=== PATIENT | female | born 1990 | race Caucasian/White ===

== ENCOUNTER → 2019-02-25 | Outpatient (CLI) | payer OTHER ==
[~2019-02-25] MED LIST: ACET-683 PO; IBUP80TA PO; PRENTAB9 PO; TUMS500C PO
[2019-02-25 14:11] LABS: HEMATOCRIT 36.3 % (36.0-47.0); HEMOGLOBIN 11.9 g/dl (12.0-15.5); MEAN CORPUSCULAR HEMOGLOBIN 31.6 pg (27.0-33.0); MEAN CORPUSCULAR HGB CONC 32.8 g/dl (32.0-36.5); MEAN CORPUSCULAR VOLUME 96.5 fl (80.0-96.0); PLATELET COUNT, AUTOMATED 293 10^3/uL (150-450); RED BLOOD COUNT 3.76 10^6/uL (4.00-5.40); WHITE BLOOD COUNT 11.2 10^3/uL (4.0-10.0)
== END ==
LOC: M SMT 09:20 → MERGE 09:20
PROVIDERS: ATTEND Advanced Practice Midwife
DX: O34.219 Maternal care for unspecified type scar from previous cesarean delivery (principal)

== ENCOUNTER → 2019-03-04 | Outpatient (CLI) | payer OTHER ==
--- NOTE | 2019-03-04 17:57 | REP ---
Obstetric sonography: History: Supervision of , followup anatomy. Findings: Scanning through the gravid uterus demonstrates a viable single intrauterine gestation in a cephalic lie. motion is observed and heart rate is recorded at 144 beats per minute. An anterior grade 1 placenta is seen without evidence of previa or abruption. Amniotic fluid is subjectively normal. Closed cervical length is 3.9 cm. No extrauterine abnormalities observed. There has been appropriate interval growth. The umbilical cord is seen draping over the neck. No anomaly is seen. The following anatomic structures are again identified and felt to be sonographically unremarkable: cranium, cavum, face and profile, lungs, four-chamber heart with left and right ventricular outflow tract views, diaphragm, left-sided stomach, abdominal wall cord insertion, three-vessel cord, kidneys and bladder. Biometry chart: BPD 7.4 cm = 29 weeks 6 days HC 27.9 cm = 30 weeks 4 days AC 25.5 cm = 29 weeks 5 days FL 5.6 cm = 29 weeks 3 days HL 5.0 cm = 29 weeks 0 days HC/AC ratio normal 1.09. Cephalic index normal 0.73. Estimated weight 1439 grams, 3 pounds 2 ounces, 42nd percentile for 29 weeks 5 days. SEKOU normal 10.1 cm. S/D ratio in the umbilical cord artery by Doppler normal 2.60. Impression: Viable single intrauterine gestation at 29 weeks 5 days. [place] by today's sonography May 15, 2019. Electronically Signed by Arnulfo Rodriguez MD 03/07/2019 08:22 A
== END ==
LOC: M RAD 15:41 → MERGE 16:00
PROVIDERS: ATTEND Obstetrics & Gynecology
DX: O26.843 Uterine size-date discrepancy, third trimester (principal); Z3A.29 29 weeks gestation of pregnancy

== ENCOUNTER → 2019-04-25 | Outpatient (REF) | payer OTHER, MEDICAID | LOC: M LAB REF 17:22 | PROVIDERS: ATTEND Obstetrics & Gynecology | DX: Z36.85 Encounter for antenatal screening for Streptococcus B (principal) ==

== ENCOUNTER 2019-05-06 12:30 | Inpatient (IN) | payer MEDICAID, OTHER ==
[2019-05-06] VITALS (30 sets, daily range): BP systolic 106–139; BP diastolic 55–88
[~2019-05-06] VITALS: Ht 160 cm; Wt 80.0 kg
[2019-05-06] MEDS ORDERED: LACTATED RINGER'S 1000 ML IV STA (12:39)
[2019-05-06] MEDS ORDERED: PRENTAB9 PO (13:42)
[2019-05-06] MEDS ORDERED: TUMS500C PO (13:42)
--- NOTE | 2019-05-06 13:58 | HPEPDOC ---
Obstetrical History & Physical General Date of Admission May 06, 2019 at 12:30 History of Present Illness Chief Complaint: Gestational Hypertension, Induction of labor Information Provided By: Patient Age: 29 : 3 Term: 1 Pre-term: 0 Abortions: 1 Livin Care Care: Good Care Dating Final EDC: May 15, 2019 Final EDC by: 1st trimester (US) EGA at Admission: 38 (+5) Antepartum Course Height (inches): 63 Pre- weight (lbs.): 150 Admission Weight (lbs.): 177 Past Medical History Past Obstetrical History : Past Obstetrical History: Primgravida (2015) Type of Delivery: Ceserean section (PROM at 41 weeks, arrest of dilation) Sex of : Male (8 lbs. 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) Past Medical History Medical History Noncontributory Surgical History: Other (dental) Family History Significant Family History: Diabetes Social History Marital Status: Family situation: Spouse/partner home Psychosocial History: No pertinent psych hx * Smoker: non-smoker Alcohol: Denies Drugs: denies Abuse Violence Screening Have you been hit/kicked/slapp: No Have you been sexually assault: No Imunizations Tdap status: declined Allergies Coded Allergies: No Known Allergies (Unverified , 05/06/19) Medications Scheduled Calcium Carbonate (Tums) 200 Mg Tab.chew, 2 TAB PO QID for cough and congestion No.137/Iron/Folic Acd ( Vitamin Tablet) 1 Each Tablet, 1 TAB PO DAILY Physical Examination Physical Examination GENERAL: Alert and oriented times three. BREAST: . ABDOMEN: Gravid and non-tender to touch. FETUS: Is vertex (VTX) by sterile vaginal examination (SVE), fetus is vertex (VTX) by Rex. HEART RATE: Regular rate and rhythm. LUNGS: Clear to auscultation (CTA). EXTREMITIES: No edema. No clonus. Deep tendon reflexes (DTRs) + 2. Laboratory Data 24H [facility] Laboratory Tests 2 05/06/19 12:37: Serology Scanned Report Hepatitis B Testing Pertinent Laboratoy Data Blood Type: O- RBC Antibody Screen: Negative HIV: Negative Hepatitis B: Negative Hepatitis C: Negative Rapid Plasma Reagin: Nonreactive Rubella: Immune Chlamydia/Gonorrhea: Negative Group B Streptococcus: Negative Quad Screen Test: Declined Glucose Tolerance Test: 97 Anatomy Ultrasound Ultrasound Date: Dec 24, 2018 Placenta Location: Anterior Normal Anatomy: Yes Placenta Previa: No Estimated Weight (grams): 295 Other Ultrasounds 10/25/2018, dating 11 weeks 1 day. 03/04/2019. Growth, 42nd percentile Vaginal Examination Dilation: None Effacement: 50% Station: -2 Cervical Consistency: Soft (exam by Jon Rondon CNM) Cervical Position: Middle Presentation: Cephalic presentation Assessment Heart Rate (FHR): 135 Variability: Moderate Accelerations: Positive Decelerations: None Tocometer Frequency: irregular Strength: palpated as mild Assessment/Plan Assessment Analilia is a 29-year-old (G) 3 para (P), 1 -, 0 -, 1-1 at 38 + 5 weeks by 11-week ultrasound. Presents to Labor and Delivery (L&D) after office visit wh ere it was determined that she had 2 elevated blood pressures. Initially 150/90 with a repeat of 142/108. Patient is being admitted for induction of labor due to gestational hypertension per consultation with Dr. Ernst. History is significant for a previous section and patient desires a trial of labor after . She has been thoroughly counseled and consents.. Plan Admit and orient. 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 Per consult. Dr. Ernst Diet: Clear liquids. Group B Streptococcus (GBS), negative. Labs and intravenous (IV) per unit protocol. Counseled on Pitocin, Cook's catheter and induction of labor (IOL). Lactated Ringers (LR): Bolus 500 mL, then at one 25 mL/hr. Patient desires epidural for coping Anticipate successful vaginal delivery after . C-S as appropriate. Vy Garcia CNM May 06, 2019 13:58
[2019-05-06 14:05] LABS: HEMATOCRIT 33.9 % (36.0-47.0); HEMOGLOBIN 11.5 g/dl (12.0-15.5); MEAN CORPUSCULAR HEMOGLOBIN 31.4 pg (27.0-33.0); MEAN CORPUSCULAR HGB CONC 33.9 g/dl (32.0-36.5); MEAN CORPUSCULAR VOLUME 92.6 fl (80.0-96.0); PLATELET COUNT, AUTOMATED 265 10^3/uL (150-450); RED BLOOD COUNT 3.66 10^6/uL (4.00-5.40); WHITE BLOOD COUNT 12.6 10^3/uL (4.0-10.0)
[2019-05-06 14:33] LABS: ALT/SGPT 24 U/L (12-78); BILIRUBIN,TOTAL 0.5 MG/DL (0.2-1.0); CREATININE FOR GFR 0.52 MG/DL (0.55-1.30); GLOMERULAR FILTRATION RATE > 60.0 (>60); LDH LACTATE DEHYDROGENASE 162 U/L (84-246); URIC ACID 3.2 MG/DL (2.6-6.0)
[2019-05-06 14:37] LABS: CREATININE,RANDOM URINE 82.5 MG/DL; TOTAL PROTEIN,RANDOM URINE 16.6 MG/DL (0.0-12.0)
[2019-05-06] MEDS ORDERED: OXYTOCIN DRIP 30 UNITS in IV 1 EA IV SCH (15:00)
[2019-05-06] MEDS: LR 1,000 ML IV SCH ×2 (15:11→19:26)
--- NOTE | 2019-05-06 17:44 | IPNPDOC ---
Text Note Date of Service The patient was seen on 05/06/19. NOTE Reports feeling mild cramping FH 145, Cat I Irregular UC SVE /-2 Cooks catheter placed, 60/40 placed Light bloody show noted VS,Fishbone, I+O VS, Fishbone, I+O Laboratory Tests 05/06/19 13:56 Vital Signs Date Time Temp Pulse Resp B/P (MAP) Pulse Ox O2 Delivery O2 Flow Rate FiO2 05/06/19 15:40 93 128/83 (98) 05/06/19 12:52 96.9 18 Vy Garcia CNM May 06, 2019 17:44
[2019-05-06] MEDS ORDERED: BUTORPHANOL 2 MG/ML INJ (J0595) IV ONE (20:00)
[2019-05-06] MEDS ORDERED: PROMETHAZINE INJ 25 MG/ML VIAL (J2550) IV ONE (20:00)
[2019-05-06] MEDS ORDERED: FENTANYL 2MCG/ML ROPIVACAINE 0.2% IN 0.9% NACL 100ML IVBAG As Ordered ONE (21:24)
[2019-05-06] MEDS: FENTANYL/ROPIVACAINE/NACL BAG 100 ML EPIDURAL SCH (21:30)
[2019-05-06] MEDS ORDERED: ONDANSETRON 4MG/2ML VIAL (J2405) IV PRN (21:30)
[2019-05-06] MEDS ORDERED: REFRIGERATOR IV KEYS XX PRN (21:30)
[2019-05-06] MEDS ORDERED: diphenhydrAMINE INJ 50MG/ML VIAL (J1200) IV PRN (21:30)
[2019-05-06] MEDS ORDERED: EPIDURAL/PCA KEYS XX PRN (21:30)
[2019-05-06] MEDS ORDERED: LACTATED RINGER'S 1000 ML IV PRN (21:30)
[2019-05-06] MEDS ORDERED: ePHEDrine SULFATE 25 MG/5 ML(5MG/ML) SYRINGE IV PRN (21:30)
[2019-05-06] MEDS ORDERED: NALOXONE INJ 0.4 MG/1 ML VIAL (J2310) IV PRN (21:30)
[2019-05-06] MEDS ORDERED: EPIDURAL COMMENT XX SCH (21:30)
[2019-05-07] VITALS (27 sets, daily range): BP systolic 99–139; BP diastolic 54–79
--- NOTE | 2019-05-07 03:14 | IPNPDOC ---
Text Note Date of Service The patient was seen on 05/07/19. NOTE SROM 0150 clear fluid UC 2-3 minutes apart x 60 seconds Pitocin @ 4mu FH 160, accels to 170's, moderate variability SVE 3-4/80/-1, tight edge persists Observe. Dr Franco aware of pt status and in house. VS,Fishbone, I+O VS, Fishbone, I+O Laboratory Tests 05/06/19 13:56 Vital Signs Date Time Temp Pulse Resp B/P (MAP) Pulse Ox O2 Delivery O2 Flow Rate FiO2 05/07/19 01:47 83 109/66 (80) 05/06/19 23:47 97.7 16 05/06/19 19:37 Room Air I&O- Last 24 Hours up to 6 AM 05/07/19 06:00 Intake Total 2590 ml Output Total 1125 ml Balance 1465 ml Vy Garcia CNM May 07, 2019 03:14
[2019-05-07] MEDS: FENTANYL/ROPIVACAINE/NACL BAG 100 ML EPIDURAL SCH (05:13)
[2019-05-07] MEDS: LR 1,000 ML IV SCH (07:12)
[2019-05-07] MEDS ORDERED: ACETAMINOPHEN 500 MG TAB PO PRN (10:00)
[2019-05-07] MEDS ORDERED: METHYLERGONOVINE MALEATE 0.2 MG TAB PO PRN (10:00)
[2019-05-07] MEDS ORDERED: ACETAMINOPHEN TAB 650MG DOSE (2X325MG) PO PRN (10:00)
[2019-05-07] MEDS ORDERED: ONDANSETRON 4MG/2ML VIAL (J2405) IV PRN (10:00)
[2019-05-07] MEDS ORDERED: DOCUSATE SODIUM 100 MG CAP PO PRN (10:00)
[2019-05-07] MEDS ORDERED: RHOGAM 300 MCG (1500 IU) INJ (J2790) IM SCH (10:00)
[2019-05-07] MEDS ORDERED: DIBUCAINE 1% OINTMENT 30GM TOP PRN (10:00)
[2019-05-07] MEDS ORDERED: OXYTOCIN DRIP 30 UNITS in IV 1 EA IV ONE (10:00)
[2019-05-07] MEDS ORDERED: IBUPROFEN 600 MG TAB PO PRN (10:00)
[2019-05-07] MEDS ORDERED: MEASLES,MUMPS,RUBELLA VACCINE INJ (MMR-II) (90707) SC SCH (10:00)
[2019-05-07] MEDS ORDERED: SLF 3 ML SYR IV PRN (11:15)
[2019-05-07] MEDS: IBUPROFEN 800 MG TAB PO PRN (14:27)
--- NOTE | 2019-05-07 18:34 | DN ---
DATE: 05/07/2019 PREDELIVERY DIAGNOSES: 1. A 38-5/7 weeks gestation 2. Gestational hypertension. 3. Trial of labor after . POSTOPERATIVE DIAGNOSIS: Delivered. PROCEDURE: Spontaneous vaginal delivery. TRIMMER MEAT: Dr. Julius Franco ANESTHESIA: Epidural. ESTIMATED BLOOD LOSS: 300 mL. FINDINGS: A 7-pound 1-ounce male infant, scores 8 and 9. DELIVERY SUMMARY: After approximately 1 hour second stage, patient spontaneously delivered a 7-pound 1-ounce male infant, scores 8 and 9, under epidural anesthesia. Loose nuchal cord times one was reduced manually. The shoulder delivered with ease. The infant was handed to the mother. Cried immediately. The cord was doubly clamped and cut. Placenta delivered spontaneously and appeared to be intact. The patient received intravenous (IV) Pitocin immediately after delivery of the placenta. A first-degree perineal laceration in the left labia was repaired with 2-0 Vicryl in the usual fashion. Sponge and needle counts were correct.
[2019-05-07] MEDS: SLF 3 ML SYR IV SCH ×2 (19:15→22:19)
[2019-05-08] MEDS: IBUPROFEN 800 MG TAB PO PRN ×2 (00:42→19:18)
[2019-05-08] MEDS: SLF 3 ML SYR IV SCH ×2 (06:00→14:00)
[2019-05-08 06:12] VITALS: BP 101/63
[2019-05-08] MEDS: PRENATAL VITAMINS CHEWABLE TABLET PO SCH (08:49)
[2019-05-08 17:50] VITALS: BP 120/59
[2019-05-09 06:00] VITALS: BP 118/77
[2019-05-09] MEDS ORDERED: IBUP80TA PO (07:01)
[2019-05-09] MEDS ORDERED: ACET-683 PO (07:01)
[2019-05-09] MEDS: PRENATAL VITAMINS CHEWABLE TABLET PO SCH (10:23)
[2019-05-09] MEDS: IBUPROFEN 800 MG TAB PO PRN (10:24)
== END 2019-05-09 13:45 | disposition home or self-care (01) | DRG 560 ==
LOC: M LDI 12:30 → M OBS 05-07 12:00
PROVIDERS: ADMIT Advanced Practice Midwife; ATTEND Specialist
PROC: 3E033VJ Introduction of Other Hormone into Peripheral Vein, Percutaneous Approach (ICD-10-PCS; 2019-05-06)
PROC: 10E0XZZ Delivery of Products of Conception, External Approach (ICD-10-PCS; principal; 2019-05-07)
PROC: 0HQ9XZZ Repair Perineum Skin, External Approach (ICD-10-PCS; 2019-05-07)
DX: O13.4 Gestational [pregnancy-induced] hypertension without significant proteinuria, complicating childbirth (principal); Z3A.38 38 weeks gestation of pregnancy; O34.211 Maternal care for low transverse scar from previous cesarean delivery; O69.81X0 Labor and delivery complicated by cord around neck, without compression, not applicable or unspecified; O70.0 First degree perineal laceration during delivery; Z37.0 Single live birth

== ENCOUNTER → 2020-05-10 | Outpatient (REF) | payer OTHER, BC | LOC: M SFHCWAGY 17:53 | PROVIDERS: ATTEND Advanced Practice Midwife | DX: Z12.4 Encounter for screening for malignant neoplasm of cervix (principal) ==

== ENCOUNTER → 2022-03-31 | Outpatient (CLI) | payer OTHER ==
[2022-03-31 15:55] LABS: BASO % 0.3 % (0.0-1.0); EOS # 0.1 10^3/uL (0.0-0.5); EOS % 0.5 % (0.0-3.0); HEMATOCRIT 41.3 % (36.0-47.0); HEMOGLOBIN 13.5 g/dl (12.0-15.5); LYMPH # 2.1 10^3/uL (1.5-5.0); LYMPH % 17.5 % (24.0-44.0); MEAN CORPUSCULAR HEMOGLOBIN 30.3 pg (27.0-33.0); MEAN CORPUSCULAR HGB CONC 32.7 g/dl (32.0-36.5); MEAN CORPUSCULAR VOLUME 92.8 fl (80.0-96.0); MONO # 0.9 10^3/uL (0.0-0.8); MONO % 7.3 % (2.0-8.0); NEUTROPHILS # 8.6 10^3/uL (1.5-8.5); NEUTROPHILS % 73.9 % (36.0-66.0); PLATELET COUNT, AUTOMATED 321 10^3/uL (150-450); RED BLOOD COUNT 4.45 10^6/uL (4.00-5.40); WHITE BLOOD COUNT 11.7 10^3/uL (4.0-10.0)
[2022-03-31 17:40] LABS: HIV 1&2 SCREEN CENTAUR NEGATIVE (NEGATIVE)
[2022-03-31 19:51] LABS: GC DNA AMPLIFICATION NEGATIVE (NEGATIVE)
== END ==
LOC: M PLALAB 12:07
PROVIDERS: ATTEND Obstetrics & Gynecology
DX: O34.211 Maternal care for low transverse scar from previous cesarean delivery (principal)

== ENCOUNTER → 2022-05-14 | Outpatient (CLI) | payer OTHER | LOC: M WHC 10:12 | PROVIDERS: ATTEND Obstetrics & Gynecology | DX: O34.211 Maternal care for low transverse scar from previous cesarean delivery (principal); Z3A.20 20 weeks gestation of pregnancy; O32.1XX0 Maternal care for breech presentation, not applicable or unspecified ==

== ENCOUNTER → 2022-07-02 | Outpatient (CLI) | payer OTHER ==
[2022-07-02 14:19] LABS: HEMATOCRIT 34.4 % (36.0-47.0); HEMOGLOBIN 11.5 g/dl (12.0-15.5); MEAN CORPUSCULAR HEMOGLOBIN 31.8 pg (27.0-33.0); MEAN CORPUSCULAR HGB CONC 33.4 g/dl (32.0-36.5); PLATELET COUNT, AUTOMATED 275 10^3/uL (150-450); RED BLOOD COUNT 3.62 10^6/uL (4.00-5.40); WHITE BLOOD COUNT 9.5 10^3/uL (4.0-10.0)
== END ==
LOC: M PLALAB 10:07
PROVIDERS: ATTEND Advanced Practice Midwife
DX: Z34.92 Encounter for supervision of normal pregnancy, unspecified, second trimester (principal); Z3A.00 Weeks of gestation of pregnancy not specified
CPT/HCPCS: 36415; 82950; 85027; 86850; 86900; 86901; J2790

== ENCOUNTER → 2022-07-02 | Outpatient (CLI) | payer OTHER | LOC: M WHC 09:11 | PROVIDERS: ATTEND Advanced Practice Midwife | DX: Z34.92 Encounter for supervision of normal pregnancy, unspecified, second trimester (principal); Z3A.27 27 weeks gestation of pregnancy ==

== ENCOUNTER → 2022-08-27 | Outpatient (REF) | payer OTHER | LOC: M PLALAB 09:52 | PROVIDERS: ATTEND Specialist | DX: Z34.83 Encounter for supervision of other normal pregnancy, third trimester (principal) ==

== ENCOUNTER 2022-09-28 16:20 | Inpatient (IN) | payer OTHER ==
[~2022-09-28] VITALS: Ht 160 cm; Wt 79.1 kg
[2022-09-28] VITALS (29 sets, daily range): BP systolic 119–162; BP diastolic 59–95
[2022-09-28] MEDS ORDERED: ASPI81CH33 PO (16:42)
[2022-09-28] MEDS ORDERED: TUMS750C5 PO (16:42)
[2022-09-28] MEDS ORDERED: HOME MED LIST COMPLETE! XX SCH (16:45)
[2022-09-28] MEDS ORDERED: OXYTOCIN DRIP 30 UNITS in IV 1 EA IV PRN (17:05)
[2022-09-28] MEDS ORDERED: LIDOCAINE 1% MDV 20ML VIAL INFIL PRN (17:05)
[2022-09-28 18:00] LABS: HEMATOCRIT 34.1 % (36.0-47.0); HEMOGLOBIN 11.3 g/dl (12.0-15.5); MEAN CORPUSCULAR HEMOGLOBIN 30.1 pg (27.0-33.0); MEAN CORPUSCULAR HGB CONC 33.1 g/dl (32.0-36.5); MEAN CORPUSCULAR VOLUME 90.7 fl (80.0-96.0); PLATELET COUNT, AUTOMATED 302 10^3/uL (150-450); RED BLOOD COUNT 3.76 10^6/uL (4.00-5.40)
[2022-09-28] MEDS ORDERED: EPIDURAL/PCA KEYS XX PRN (18:25)
[2022-09-28] MEDS ORDERED: FENTANYL/ROPIVACAINE/NACL BAG 100 ML EPIDURAL SCH (18:25)
[2022-09-28] MEDS ORDERED: diphenhydrAMINE 50MG/ML VIAL IV PRN (18:25)
[2022-09-28] MEDS ORDERED: ePHEDrine SULFATE 25 MG/5 ML(5MG/ML) SYRINGE IVP PRN (18:25)
[2022-09-28] MEDS ORDERED: ONDANSETRON 4MG 2ML VIAL IV PRN (18:25)
[2022-09-28] MEDS ORDERED: LR 500 ML IV PRN (18:25)
[2022-09-28] MEDS ORDERED: NALOXONE INJ 0.4MG/1ML VIAL IV PRN (18:25)
[2022-09-28] MEDS ORDERED: OXYTOCIN 30UNITS IN 0.9% NaCl 500ML IV BAG As Ordered ONE (22:12)
[2022-09-28] MEDS ORDERED: METHYLERGONOVINE MALEATE 0.2 MG TAB PO PRN (23:10)
[2022-09-28] MEDS ORDERED: IBUPROFEN 600MG TAB PO PRN (23:10)
[2022-09-28] MEDS ORDERED: ACETAMINOPHEN TAB 650MG DOSE (2X325MG) PO PRN (23:10)
[2022-09-28] MEDS ORDERED: DIBUCAINE 1% OINTMENT 30GM TOP PRN (23:10)
[2022-09-28] MEDS ORDERED: RHOGAM 300MCG (1500IU) INJ IM SCH (23:10)
[2022-09-28] MEDS ORDERED: DOCUSATE SODIUM 100MG CAPSULE PO PRN (23:10)
[2022-09-28] MEDS ORDERED: ACETAMINOPHEN 500 MG TAB PO PRN (23:10)
[2022-09-28] MEDS ORDERED: PILL CUTTER 1 EACH XX PRN (23:40)
[2022-09-29 00:24] VITALS: BP 111/56
[2022-09-29 01:08] VITALS: BP 128/60
[2022-09-29 05:57] VITALS: BP 108/64
[2022-09-29] MEDS: IBUPROFEN 800 MG TAB PO PRN ×2 (08:53→21:01)
[2022-09-29] MEDS: PRENATAL VITAMINS CHEWABLE TABLET PO SCH (08:53)
[2022-09-29 18:00] VITALS: BP 122/84
[2022-09-30 06:00] VITALS: BP 130/78
[2022-09-30] MEDS: PRENATAL VITAMINS CHEWABLE TABLET PO SCH (08:31)
[2022-09-30] MEDS: IBUPROFEN 800 MG TAB PO PRN (08:57)
[2022-09-30] MEDS ORDERED: MEASLES,MUMPS,RUBELLA VACCINE INJ (MMR-II) SC.IMMUN ONE (09:00)
[2022-09-30] MEDS ORDERED: IBUP-1022 PO (10:20)
[2022-09-30] MEDS ORDERED: ACET-683 PO (10:20)
[2022-09-30] MEDS ORDERED: COLA100C5 PO (10:20)
== END 2022-09-30 10:57 | disposition home or self-care (01) | DRG 560 ==
LOC: M LDO 16:20 → M LDI 17:00 → M OBS 09-29 01:07
PROVIDERS: ADMIT Specialist; ATTEND Specialist
PROC: 10E0XZZ Delivery of Products of Conception, External Approach (ICD-10-PCS; principal; 2022-09-28)
PROC: 0KQM0ZZ Repair Perineum Muscle, Open Approach (ICD-10-PCS; 2022-09-28)
DX: O34.211 Maternal care for low transverse scar from previous cesarean delivery (principal); Z37.0 Single live birth; Z3A.40 40 weeks gestation of pregnancy; O70.1 Second degree perineal laceration during delivery